=== PATIENT | female | born 1965 | race Hispanic/Latino ===

== ENCOUNTER 2025-09-11 06:19 | Emergency (ER) | payer BC ==
[~2025-09-11] VITALS: Ht 165.1 cm; Wt 86.2 kg
--- NOTE | 2025-09-11 06:46 | ERN ---
ED Note History of Present Illness Stated Complaint: BACK PAIN, ABD PAIN NAUSEA Chief Complaint: Multiple Complaints Time Seen by MD: 06:25 Dictation: This is a 60-year-old female who presented to the emergency room with complaints of back pain abdominal pain and nausea. Apparently she was at work and began experiencing around 2:00 a.m. lower back pain and received a pill for the pain from a co-worker which is OTC in [place]. Unclear if opioid. After couple hours patient began experiencing weakness nausea and vomitings once. And her abdomen began to hurt and she came into the ER for further evaluation. No constipation diarrhea no fever chills or rigors. No bladder or bowel incontinence. Temperature 97.1 pulse 94 respirations 20 blood pressure 148/73 with a pulse oximetry of 99% on room air Allergies: Coded Allergies: No Known Drug Allergies (Unverified Allergy, Unknown, 10/18/15) Home Meds Active Scripts Acetaminophen with Codeine (Tylenol with Codeine #3 Tablet) 1 Each Tablet, 1-2 TAB PO q4h prn for PAIN, #40 TAB Prov:MARCIA RUIZ MD 10/20/15 Reported Medications Cyclobenzaprine HCl (Cyclobenzaprine HCl) 10 Mg Tablet, 10 MG PO HS, TAB 10/18/15 Past Medical History Past Medical History: No Pertinent History Surgical History: Cholecystectomy Family History: Negative History: Not Applicable RN Note Reviewed/Agreed w/PFSH: Yes Review of System Dictation Constitutional: Negative for fever,chills, and weight loss Eyes: Negative for injury, pain,redness, and discharge ENT: Negative for injury,pain or swelling Cardiovascular: Negative for chest pain, palpitations, and edema Respiratory: Negative for shortness of breath, cough, and wheezing, Abdomen/GI: Positive for abdominal pain, nausea, vomiting, diarrhea, and constipation Back: Negative for injury and positive for low back pain : Negative for injury, bleeding and discharge MS/Extremity: Negative for injury and deformity Skin: Negative for rash, and discoloration Neuro: Negative for headache, weakness, numbness, tingling, and seizure Psych: Negative for suicide ideation, homicidal ideation, and hallucinations Initial Vital Sign VS Vital Signs Date Time Temp Pulse Resp B/P (MAP) Pulse Ox O2 Delivery O2 Flow Rate FiO2 09/11/25 06:21 97.2 94 20 148/73 99 Room Air 12/12/25 06:35 0 21 Physical Exam Dictation General: awake, alert, NAD Head/Face: Normocephalic, atraumatic Eyes: PERRL, EOMI, vision at baseline ENT: oral cavity clear, TMs clear, no signs of infection Neck: Trachea midline, supple, no nuchal rigidity Cardiovascular: RRR, normal S1/S2, No MRGs, no JVD Respiratory: CTAB, no respiratory distress, No rales or wheezes Abdomen: Soft, non-tender, non-distended, normal bowel sounds, no guarding or rebound. Skin: Warm, dry, normal turgor, no rash MS/Extremity: Pulses equal, no cyanosis, neurovascular intact, FROM Neuro: COAx4, GCS 15, strength 5/5, CN 2-12 intact, normal cerebellar exam, normal gait, Psych: Normal behavior, mood, and affect normal Extremities-trace edema without any palpable cords, Homans sign is negative Results (Laboratory/Radiology) Laboratory/Radiology Laboratory Tests Test 09/11/25 06:48 09/11/25 06:53 Urine Color LIGHT-YELLOW (YELLOW) Urine Appearance CLEAR (CLEAR) Urine pH 5.5 (5.0-8.0) Urine Specific [place] 1.027 (1.001-1.031) Urine Protein 10 mg/dL (NEGATIVE) H Urine Glucose (UA) NEGATIVE mg/dL (NEGATIVE) Urine Ketones NEGATIVE mg/dL (NEGATIVE) Urine Occult Blood +- (TRACE) (NEGATIVE) H Urine Nitrate NEGATIVE (NEGATIVE) Urine Bilirubin NEGATIVE mg/dL (NEGATIVE) Urine Urobilinogen 0.2 mg/dL (0.2-1.0) Urine Leukocyte Esterase NEGATIVE Bear/uL Urine RBC 2-5 /HPF (0-1) H Urine WBC 2-5 /HPF (0-1) H Urine Squamous Epithelial Cells RARE /HPF (0-2) Urine Bacteria None /HPF (None Seen) Urine Opiates Screen NEGATIVE (NEGATIVE) Urine Barbiturates Screen NEGATIVE (NEGATIVE) Urine Phencyclidine Screen NEGATIVE (NEGATIVE) Urine Amphetamines Screen NEGATIVE (NEGATIVE) Urine Benzodiazepines Screen NEGATIVE (NEGATIVE) Urine Cocaine Screen NEGATIVE (NEGATIVE) Urine Marijuana (THC) Screen NEGATIVE (NEGATIVE) White Blood Count 11.5 K/uL (4.8-10.8) H Red Blood Count 4.53 MIL/uL (4.00-5.50) Hemoglobin 13.7 g/dL (12.0-16.0) Hematocrit 41.7 % (36-48) Mean Corpuscular Volume 92.1 fL (79-99) Mean Corpuscular Hemoglobin 30.2 pg (27.0-33.0) Mean Corpuscular Hemoglobin Concent 32.9 g/dL (32.0-36.0) Red Cell Distribution Width 12.3 % (11.0-15.5) Platelet Count 270 K/uL (130-400) Mean Platelet Volume 10.3 fL (7.5-10.5) Nucleated Red Blood Cells 0.0 % (0.0-0.19) Sodium Level 140 mmol/L (136-145) Potassium Level 3.4 mmol/L (3.5-5.1) L Chloride Level 103 mmol/L (101-111) Carbon Dioxide Level 29 mmol/L (21-32) Blood Urea Nitrogen 17 mg/dL (7-18) Creatinine 0.9 mg/dL (0.5-1.0) Glomerular Filtration Rate Calc 73 mL/min (>90) Random Glucose 136 mg/dL (70-105) H Total Calcium 8.8 mg/dL (8.5-10.1) Labs Reviewed?: Yes ED Course ED Course Orders Procedure Category Date Status Time Urinalysis Profile LAB 09/11/25 Complete 06:40 Ondansetron 4mg Inj PHA 09/11/25 Complete (Zofran 4mg Inj) 07:00 Ketorolac PHA 09/11/25 Complete Tromethamine 15mg/Ml 07:00 Drug Screen Urine LAB 09/11/25 Complete 06:44 Cbc Without LAB 09/11/25 Complete Differential 06:44 Basic Metabolic Panel LAB 09/11/25 Complete 06:44 0.9%Nacl 1000ml (Ns PHA 09/11/25 Complete 1000ml) 08:00 Pantoprazole 40mg Inj PHA 09/11/25 Complete (Protonix 40mg Inj 08:00 Current Medications Medications (Trade) Dose Ordered Sig/Sylvia Route PRN Reason Start Time Stop Time Status Last Admin Dose Admin Ketorolac Tromethamine (toRADol) 15 mg ONCE ONCE IV 09/11/25 07:00 09/11/25 07:01 DC 09/11/25 06:58 Ondansetron HCl (zoFRAN 4MG INJ) 4 mg ONCE ONCE IVP 09/11/25 07:00 09/11/25 07:01 DC 09/11/25 06:58 Pantoprazole Sodium (PROTonix 40MG INJ) 40 mg ONCE ONCE IVP 09/11/25 08:00 09/11/25 08:02 DC Sodium Chloride 1,000 ml @ 0 mls/hr ONCE ONCE IV 09/11/25 08:00 09/11/25 08:02 DC Vital Signs Date Time Temp Pulse Resp B/P (MAP) Pulse Ox O2 Delivery O2 Flow Rate FiO2 09/11/25 07:45 97.9 67 18 145/74 97 Room Air* 0 21 09/11/25 06:35 97.9 82 20 154/72 97 Room Air* 0 21 09/11/25 06:21 97.2 94 20 148/73 99 Room Air Medical Decision Making MDM Differential diagnosis- MDM: Differential diagnosis: Gastroenteritis, gastritis, medication side effe ct,Lumbago, degenerative disc disease, paraspinal muscle spasm, central canal stenosis, dish, optimal stenosis, herniated intervertebral discs, spondylolisthesis I strongly suspect the abdominal symptoms or perhaps the side effects of the pain medicine that she took which I am suspecting could be an opioid. Rationale: Tests considered and ordered secondary to shared decision making include: Previous outside records reviewed: Old ER visits. Risk of complication and/or morbidity or mortality of patient management: None Medications-Per medication reconciliation Need for hospitalization: Patient does not meet criteria for hospitalization. Need for emergency major/minor surgery: No Is a 60-year-old female coming in complaining of abdominal discomfort after taki ng some medication for back pain. She did not remember what medication it was patient was hydrated IV fluids given some IV Protonix states he feels much better we will be discharged in stable condition. DX & DISP Disposition: Discharge Departure Impression: Primary Impression: Medication side effect Additional Impression: Viral gastroenteritis Condition: Stable Scripts Pantoprazole Sodium (Protonix) 40 Mg Ectab 1 TAB PO DAILY for 30 Days, #30 TAB 0 Refills Prov: SHAHLA MELARA MD 09/11/25 Additional Instructions: FOLLOW-UP WITH PRIMARY CARE PROVIDER IN 1 TO 2 DAYS. TAKE MEDICATIONS DIRECTED HERE IN THE EMERGENCY ROOM. OKAY TO CONTINUE HOME MEDICATIONS UNLESS OTHERWISE DISCUSSED DURING YOUR VISIT IN THE EMERGENCY ROOM TODAY. RETURN TO YOUR NEAREST EMERGENCY ROOM IF SYMPTOMS WORSEN OR IF THERE IS NO IMPROVEMENT. CALL 911 IF YOU NEED IMMEDIATE ASSISTANCE. TAKE TYLENOL [id number] NEEDED AND IF NO CONTRAINDICATIONS ARE PRESENT. INCREASE ORAL HYDRATION. A WOUND CULTURE OR URINE CULTURE WAS ORDERED HERE IN THE EMERGENCY ROOM DEPARTMENT PLEASE FOLLOW-UP WITH PRIMARY CARE PROVIDER AND ADVISE THEM TO GET REPORTS FROM OUR FACILITY. IF YOU HAD ANY SUKUMAR WRAP/SPLINTS THAT WERE APPLIED HERE, PLEASE DO NOT REMOVE THEM UNTIL YOU SEE YOUR PRIMARY CARE OR SPECIALTY. Referrals: Referrals: CHASITY NOYOLA (PCP) Time of Disposition: 08:31 SRAVANTHI LERNER MD Sep 11, 2025 06:46 SHAHLA MELARA MD Sep 11, 2025 08:32
[2025-09-11 07:43] LABS: ADD UA MICROSCOPIC YES; APPEARANCE,URINE CLEAR (CLEAR); GLUCOSE, URINE (UA) NEGATIVE (NEGATIVE); LEUKOCYTE ESTERASE ,URINE NEGATIVE Leu/uL (NEGATIVE); NITRATE,URINE NEGATIVE (NEGATIVE); OCCULT BLOOD,URINE +- (TRACE) (NEGATIVE)
[2025-09-11 07:44] LABS: CREATININE 0.9 mg/dL (0.5-1.0); GLOMERULAR FILTR. RATE CALC 73.0 mL/min (>90); GLUCOSE,RANDOM 136.0 mg/dL (70-105); NUCLEATED RED BLOOD CELLS 0.0 % (0.0-0.19); PLATELET COUNT (AUTO) 270.0 K/uL (130-400); RED BLOOD CELL COUNT(AUTO) 4.53 MIL/uL (4.00-5.50); RED CELL DISTRIBUTION WIDTH 12.3 % (11.0-15.5); SODIUM SERUM 140.0 mmol/L (136-145); UREA NITROGEN, BLOOD 17.0 mg/dL (7-18); WHITE BLOOD COUNT (AUTO) 11.5 K/uL (4.8-10.8)
[2025-09-11 07:50] LABS: AMPHET/METH SCREEN,URINE NEGATIVE (NEGATIVE); BARBITURATE SCREEN, URINE NEGATIVE (NEGATIVE); CANNABINOID SCREEN,URINE NEGATIVE (NEGATIVE); COCAINE SCREEN,URINE NEGATIVE (NEGATIVE)
[2025-09-11 08:08] LABS: SQUAMOUS EPITHELIAL CELL,UR RARE /HPF (0-2)
[2025-09-11 08:35] VITALS: BP 140/64; PULSE 82; RESP 18; TEMP 97.8; O2SAT 99
[2025-09-11] MEDS: 0.9%NACL 1000ML 1,000 ML IV ONE (08:57)
== END 2025-09-11 09:19 | disposition home or self-care (01) ==
LOC: EDH 06:19
DX: R53.1 Weakness (principal); R11.0 Nausea; T50.905A Adverse effect of unspecified drugs, medicaments and biological substances, initial encounter; A08.4 Viral intestinal infection, unspecified; Z79.899 Other long term (current) drug therapy; Z90.49 Acquired absence of other specified parts of digestive tract; Y92.89 Other specified places as the place of occurrence of the external cause
CPT/HCPCS: 99284; 96374; 96375; 80048; 80305; 85027; 36415; 81001; J1885; J7030; J2405; J2470